=== PATIENT | female | born 1990 | race Two or more races ===

== ENCOUNTER 2019-09-26 00:30 | Emergency (ER) | payer SELFPAY ==
[~2019-09-26] VITALS: Ht 170.2 cm; Wt 75.0 kg
--- NOTE | 2019-09-26 01:59 | PHYS DOC ---
Past Medical History Past Medical History: No Pertinent History Past Surgical History: No Surgical History Smoking Status: Current Every Day Smoker Alcohol Use: None Drug Use: None General Adult EDM: Chief Complaint: LOWER EXT PAIN HPI: HPI: Patient is a 28 year old female presents with report of left lower back pain after "almost slipping in the bathtub "earlier this evening. Patient reports she was able to catch herself but has since had some left low lumbar back pain. Denies numbness or tingling. Denies radiation of pain. Patient reports pain worse with standing. Denies loss of bowel or bladder. Denies rash. Denies trauma. Denies . Review of Systems: Review of Systems: Constitutional: Denies fever or chills Eyes: Denies redness or eye pain HENT: Denies nasal congestion or sore throat Respiratory: Denies cough or shortness of breath Cardiovascular: Denies chest pain or palpitations GI: Denies abdominal pain, nausea, or vomiting : Denies dysuria or hematuria Musculoskeletal: Reports back pain; denies joint pain Integument: Denies rash or skin lesions Neurologic: Denies headache, focal weakness or sensory changes Complete systems were reviewed and found to be within normal limits, except as documented in this note. Physical Exam: PE: Constitutional: Well developed, well nourished, no acute distress, non-toxic appearance HENT: Normocephalic, atraumatic Eyes: Conjunctiva normal, no discharge Neck: Normal range of motion, no tenderness, supple Lungs & Thorax: No respiratory distress, equal chest rise and fall Abdomen: Soft, no tenderness; pelvis stable and nontender Skin: Warm, dry, no erythema, no rash Back: No midline tenderness, low lumbar paraspinal tenderness on left, no CVA tenderness Extremities: No tenderness, ROM intact, no edema Neurologic: Alert and oriented X 3, no focal deficits noted Psychologic: Affect normal, judgment normal EKG: EKG: [] Radiology/Procedures: Radiology/Procedures: [] Course & Med Decision Making: Course & Med Decision Making Patient presents with HPI and physical exam consistent for left-sided low lumbar paraspinal tenderness. No midline tenderness noted. No loss of bowel or bladder. Symptomatic treatment provided. Ice applied. [facility] report without recent controlled substances. Patient stable for discharge with outpatient follow-up with PCP/pain management. Pain management referral provided. Discussed findings and plan with patient, who acknowledges understanding and agreement. [place] Disclaimer: Flor[place]ma Disclaimer: This electronic medical record was generated, in whole or in part, using a voice recognition dictation system. Departure Departure Impression: Primary Impression: Back pain Qualified Codes: M54.5 - Low back pain Disposition: HOME, SELF-CARE Condition: STABLE Referrals: NO PCP (PCP) MAURICE BRUCE MD Patient Instructions: Back Pain, Adult, [id number] Scripts Naproxen (NAPROXEN) 500 Mg Tablet 1 TAB PO BID PRN for PAIN, #30 TAB Prov: YANIRA GANT DO 09/26/19 Hydrocodone/Apap 5-325 (NORCO 5-325 TABLET) 1 Each Tablet 0.5-1 TAB PO PRN Q6HRS PRN for PAIN for 10 Days, TAB 0 Refills Prov: YANIRA GANT DO 09/26/19 Orphenadrine Citrate (ORPHENADRINE CITRATE) 100 Mg Tablet.er 100 MG PO BID PRN for MUSCLE PAIN, #14 TAB Prov: YANIRA GANT DO 09/26/19 Prednisone (PREDNISONE) 20 Mg Tablet 2 TAB PO DAILY, #8 TAB Start this prescription tomorrow, Monday09/27/19 Prov: YANIRA GANT DO 09/26/19 Justicifation of Admission Dx: Justifications for Admission: Justification of Admission Dx: N/A YANIRA GANT DO Sep 26, 2019 01:59
[2019-09-26] MEDS ORDERED: DEXAMETHASONE 4 MG TABLET PO ONE (02:15)
[2019-09-26] MEDS ORDERED: HYDR-3164 PO (02:15)
[2019-09-26] MEDS ORDERED: HYDROcodone/APAP 5/325MG 1 TAB TABLET PO ONE (02:15)
[2019-09-26] MEDS ORDERED: KETOROLAC 30 MG/ML VIAL. IM ONE (02:15)
[2019-09-26] MEDS ORDERED: ORPH100T PO (02:15)
[2019-09-26] MEDS ORDERED: PRED20TA PO (02:15)
[2019-09-26] MEDS ORDERED: ORPHENADRINE CITRATE 60 MG/2 ML VIAL. IM ONE (02:15)
[2019-09-26] MEDS ORDERED: NAPR-514 PO (02:15)
[2019-09-26 02:53] VITALS: BP 125/65
== END 2019-09-26 03:01 | disposition home or self-care (01) ==
LOC: ER 00:30
DX: M54.5 Low back pain (principal); G89.11 Acute pain due to trauma; F17.200 Nicotine dependence, unspecified, uncomplicated; W18.2XXA Fall in (into) shower or empty bathtub, initial encounter; Y93.89 Activity, other specified; Y92.89 Other specified places as the place of occurrence of the external cause; Y99.8 Other external cause status
CPT/HCPCS: 96372; 99284; J1885; J2360